=== PATIENT | male | born 1995 | race Caucasian/White ===

== ENCOUNTER 2018-06-05 11:10 | Emergency (ER) | payer BC ==
[~2018-06-05] VITALS: Ht 190.5 cm; Wt 77.1 kg
[~2018-06-05 11:10] MED LIST: AMOX50SU PO; CEPH500 PO; CODGUAEL PO; IBUP800 PO; OXYACE5T PO; RXCODGUASY PO; RXOXYACE PO
[2018-06-05] MEDS ORDERED: Augmentin 875-1 EACH PO (12:37)
== END 2018-06-05 12:53 | disposition home or self-care (01) ==
LOC: ER 11:10
DX: K04.7 Periapical abscess without sinus (principal)
CPT/HCPCS: 96365; 99282-25; J0690

== ENCOUNTER 2020-08-14 20:31 | Emergency (ER) | payer BC ==
[~2020-08-14] VITALS: Ht 190.5 cm; Wt 77.1 kg
[~2020-08-14 20:31] MED LIST changes: +Augmentin 875-1 EACH PO
== END 2020-08-15 00:43 | disposition home or self-care (01) ==
LOC: ER 20:31
DX: H61.23 Impacted cerumen, bilateral (principal)
CPT/HCPCS: 69209; 99283-25